=== PATIENT | female | born 1975 | race Caucasian/White ===

== ENCOUNTER 2016-08-27 09:12 | Emergency (ER) | payer OTHER ==
--- NOTE | 2016-08-27 09:18 | EDPHY ---
H & P HPI/ROS: HPI CHIEF COMPLAINT: Rash, tingling of her tongue, mouth, throat, allergic reaction HISTORY OF PRESENT ILLNESS: this patient is a very pleasant 41-year-old female , significant past medical history for migraine headaches, she tells me that she takes a butter brea extract to help control her migraine headaches. Patient tells me that recently she has been taking an noticed that shortly after she takes it she develops tingling of her tongue, posterior pharynx and lips as if she is having allergic reaction. She tells me that she only has this happen after she takes this extract. She has been taking this extracts recently more often to help preventative maintenance of her migraine headaches. She denies focal weakness numbness or tingling anywhere else. She denies focal weakness. Denies numbness tingling anywhere else specifically denies tingling numbness to her face. She describes the tingling to her tongue as diffuse not one-sided tingling throughout her posterior pharynx and down her throat and also her lip circumferentially. Not 1 sided. Denies visual disturbance, denies double vision, denies weakness or fever. Denies recent illness. She does tell me that she has severe allergic reactions to ragweed, and asthma. patient is also requesting that I check her liver enzymes and renal function as she has a family history with liver disease and renal failure. She has no focal symptoms specifically no decreased urine output, no itching or pruritus or jaundice however she is requesting that I check his blood work for her. Past Medical History: Severe allergic reaction regularly, asthma, migraine headaches Past Surgical History: laparoscopic due to endometriosis Social History: denies use of drugs, alcohol, tobacco products Family History: noncontributory ROS REVIEW OF SYSTEMS: A comprehensive 10 point review of systems is otherwise negative aside from elements mentioned in the history of present illness. Exam Constitutional triage nursing summary reviewed, vital signs reviewed, awake/ alert. Eyes normal conjunctivae and sclera, EOMI, PERRLA. HENT normal inspection, atraumatic, moist mucus membranes, no epistaxis, neck supple/ no meningismus, no raccoon eyes. Respiratory clear to auscultation bilaterally, normal breath sounds, no respiratory distress, no wheezing. Cardiovascular rate normal, regular rhythm, no murmur, no edema, distal pulses normal. Gastrointestinal soft, non-tender, no rebound, no guarding, normal bowel sounds, no distension, no pulsatile mass. Genitourinary no CVA tenderness. Musculoskeletal no midline vertebral tenderness, full range of motion, no calf swelling, no tenderness of extremities, no meningismus, good pulses, neurovascularly intact. Skin there is blotchy redness present to the anterior chest worse on the right side of the chest and left, and up the neck consistent with possibly early urticaria Neurologic completely normal neurological exam; no sensory deficit on facial exam, awake, alert and oriented x 3, AAOx3, moves all 4 extremities equally, motor intact, sensory intact, CN II-XII intact, normal cerebellar, normal vision , normal speech. Psychiatric normal mood/affect. Heme/Lymph/Immune no lymphadenopathy. Differential Diagnosis: include allergic reaction, adverse side effect, electrolyte abnormality, Evaluation for renal failure, liver disease. Medical Decision Making: this patient had an IV established will obtain blood work will check her kidney function, liver function, she will be medicated with IV Solu-Medrol, Benadryl, Pepcid for allergic reaction she received IV fluids and will re-evaluate her. Re-evaluation: 1131: Re-evaluation at this time she is resting comfortably she did start complaining of itching of bilateral arms and rash, I have given her another 25 mg IV Benadryl and 0.5 mg IV Ativan will reassess shortly. 1138: Re-evaluation at this time this patient is feeling slightly better less anxious after IV Ativan and IV Benadryl. Her itching has improved. She does tell me she still has burning sensation back or throat I will order her a GI cocktail to see if this improves her symptoms. 1238: Re-evaluation at this time this patient is resting comfortably no acute distress. No further allergic reaction symptoms. In fact her urticaria on her chest redness blotchiness has resolved. She is breathing fine, no respiratory symptoms specifically no wheezing no stridor and her pruritus has resolved. She feels comfortable going home. She does understand if she has further symptoms of allergic reaction return emergency room. Source: Patient - Personal History Tetanus Vaccine Date: WITHIN 10 YRS - Medical/Surgical History Hx Asthma: Yes Hx Chronic Respiratory Disease: No Hx Diabetes: No Hx Cardiac Disease: No Hx Renal Disease: No Hx Cirrhosis: No Hx Alcoholism: No Hx HIV/AIDS: No Hx Splenectomy or Spleen Trauma: No Other PMH: Insulin Resistance. Asthma. PCP Washburn - Social History Smoking Status: Never smoked Constitutional: Initial Vital Signs Temperature (C) 36.9 C 08/27/16 09:28 Heart Rate 97 08/27/16 09:28 Respiratory Rate 16 08/27/16 09:28 Blood Pressure 140/81 H 08/27/16 09:28 O2 Sat (%) 99 08/27/16 09:28 O2 Delivery Mode Room Air Allergies/Adverse Reactions: ibuprofen Allergy (Intermediate, Verified 08/27/16 09:27) Vomiting grass pollen Allergy (Verified 08/27/16 09:32) mold Allergy (Verified 08/27/16 09:32) ragweed pollen Allergy (Verified 08/27/16 09:32) Home Medications: Medication Instructions Recorded Albuterol 01/05/16 Metformin HCl 01/05/16 Famciclovir 08/27/16 Famotidine [Pepcid 20 MG (*)] 20 mg PO BID #6 tab 08/27/16 diphenhydrAMINE [Benadryl 25 MG 25 mg PO BID 3 Days 08/27/16 (*)] predniSONE 60 mg PO DAILY #9 tab 08/27/16 Medical Decision Making - Data Points Laboratory Results: Laboratory Results 08/27/16 09:35 08/27/16 09:35 08/27/16 09:35 WBC 8.11 10^3/uL (3.80-9.50) RBC 4.57 10^6/uL (4.18-5.33) Hgb 14.4 g/dL (12.6-16.3) Hct 41.9 % (38.0-47.0) MCV 91.7 fL (81.5-99.8) MCH 31.5 pg (27.9-34.1) MCHC 34.4 g/dL (32.4-36.7) RDW 12.9 % (11.5-15.2) Plt Count 298 10^3/uL (150-400) MPV 9.2 fL (8.7-11.7) Neut % (Auto) 58.9 % (39.3-74.2) Lymph % (Auto) 30.8 % (15.0-45.0) [place] % (Auto) 7.2 % (4.5-13.0) Eos % (Auto) 2.7 % (0.6-7.6) Baso % (Auto) 0.2 L % (0.3-1.7) Nucleat RBC Rel Count 0.0 % (0.0-0.2) Absolute Neuts (auto) 4.77 10^3/uL (1.70-6.50) Absolute Lymphs (auto) 2.50 10^3/uL (1.00-3.00) Absolute Monos (auto) 0.58 10^3/uL (0.30-0.80) Absolute Eos (auto) 0.22 10^3/uL (0.03-0.40) Absolute Basos (auto) 0.02 10^3/uL (0.02-0.10) Absolute Nucleated RBC 0.00 10^3/uL (0-0.01) Immature Gran % 0.2 % (0.0-1.1) Immature Gran # 0.02 10^3/uL (0.00-0.10) Sodium 142 mEq/L (134-144) Potassium 3.9 mEq/L (3.5-5.2) Chloride 103 mEq/L (97-110) Carbon Dioxide 26 mEq/l (22-31) Anion Gap 13 mEq/L (8-16) BUN 15 mg/dL (7-23) Creatinine 0.7 mg/dL (0.6-1.0) Estimated GFR > 60 Glucose 98 mg/dL (70-100) Calcium 9.6 mg/dL (8.5-10.4) Total Bilirubin 0.9 mg/dL (0.1-1.4) AST 17 IU/L (14-46) ALT 24 IU/L (9-52) Alkaline Phosphatase 52 IU/L (38-126) Total Protein 7.9 g/dL (6.3-8.2) Albumin 4.6 g/dL (3.5-5.0) Medications Given: Discontinued Medications Diphenhydramine HCl (Benadryl Injection) 25 mg IVP EDNOW ONE Stop: 08/27/16 09:34 Last Admin: 08/27/16 09:47 Dose: 25 mg Diphenhydramine HCl (Benadryl Injection) 25 mg IVP EDNOW ONE Stop: 08/27/16 10:51 Last Admin: 08/27/16 10:59 Dose: 25 mg Famotidine (Pepcid) 20 mg IVP EDNOW ONE Stop: 08/27/16 09:34 Last Admin: 08/27/16 09:48 Dose: 20 mg Sodium Chloride (Ns) 500 mls @ 0 mls/hr IV ONCE ONE PRN Reason: Wide Open Stop: 08/27/16 09:34 Last Admin: 08/27/16 09:50 Dose: 500 mls Lorazepam (Ativan Injection) 0.5 mg IVP EDNOW ONE Stop: 08/27/16 10:51 Last Admin: 08/27/16 11:00 Dose: 0.5 mg Methylprednisolone Sodium Succinate (Solu-Medrol) 125 mg IVP EDNOW ONE Stop: 08/27/16 09:34 Last Admin: 08/27/16 09:48 Dose: 125 mg Miscellaneous Medication (Gi Cocktail) 55 ml PO EDNOW ONE Stop: 08/27/16 11:39 Last Admin: 08/27/16 11:44 Dose: 55 ml Departure - Departure Disposition: Home, Routine, Self-Care Clinical Impression: Allergic reaction Qualifiers: Qualifier Code: (T78.40XA) Allergy, unspecified, initial encounter Condition: Good Instructions: Allergies (ED), Food Allergy (ED), Urticaria (ED), Anaphylaxis ( ED) Additional Instructions: 1. Return to the urgent care or emergency room if develops any worsening symptoms includes signs of allergic reaction trouble breathing, trouble swallowing, rash, further numbness or tingling or questions or concerns. Referrals: Misty Washburn DO [Primary Care Provider] - As per Instructions Prescriptions: diphenhydrAMINE [Benadryl 25 MG (*)] 25 mg PO BID 3 Days Famotidine [Pepcid 20 MG (*)] 20 mg PO BID #6 tab predniSONE 60 mg PO DAILY #9 tab
[2016-08-27 09:32] VITALS: TEMP 98.4
[2016-08-27] MEDS ORDERED: methylPREDNISolone SOD SUCC 125 MG/2 ML VIAL IVP ONE (09:33)
[2016-08-27] MEDS ORDERED: NS 500 ML IV ONE (09:33)
[2016-08-27] MEDS ORDERED: FAMOTIDINE 20 MG/2 ML SDV IVP ONE (09:33)
[2016-08-27 09:51] LABS: % IMMATURE GRANULYOCYTES 0.2 % (0.0-1.1); ABSOLUTE IMMATURE GRANULOCYTES 0.02 10^3/uL (0.00-0.10); ADD DIFF? NO; ADD MORPH? NO; ADD SCAN? NO; ATYPICAL LYMPHOCYTE FLAG 10 (0-99); FRAGMENT RBC FLAG 0 (0-99); HEMATOCRIT 41.9 % (38.0-47.0); HEMOGLOBIN 14.4 g/dL (12.6-16.3); LEFT SHIFT FLG 0 (0-99); LIPEMIA HEMOLYSIS FLAG 90 (0-99); MEAN CELL HEMOGLOBIN 31.5 pg (27.9-34.1); MEAN CELL HEMOGLOBIN CONCENTR. 34.4 g/dL (32.4-36.7); MEAN CELL VOLUME 91.7 fL (81.5-99.8); MEAN PLATELET VOLUME 9.2 fL (8.7-11.7); PLATELET CLUMPS FLAG 0 (0-99); PLATELET COUNT 298 10^3/uL (150-400); RED BLOOD CELL COUNT 4.57 10^6/uL (4.18-5.33); RED CELL DISTRIBUTION WIDTH 12.9 % (11.5-15.2)
[2016-08-27 10:18] LABS: ALANINE AMINOTRANSFERASE 24 IU/L (9-52); ALBUMIN 4.6 g/dL (3.5-5.0); ALKALINE PHOSPHATASE 52 IU/L (38-126); ANION GAP 13 mEq/L (8-16); ASPARTATE AMINOTRANSFERASE 17 IU/L (14-46); BILIRUBIN,TOTAL 0.9 mg/dL (0.1-1.4); CALCIUM 9.6 mg/dL (8.5-10.4); CARBON DIOXIDE 26 mEq/l (22-31); CHLORIDE 103 mEq/L (97-110); CREATININE 0.7 mg/dL (0.6-1.0); GLOMERULAR FILTRATION RATE > 60; GLUCOSE 98 mg/dL (70-100); POTASSIUM 3.9 mEq/L (3.5-5.2); SODIUM 142 mEq/L (134-144); TOTAL PROTEIN 7.9 g/dL (6.3-8.2)
[2016-08-27] MEDS ORDERED: LORazepam 2 MG/ML INJ IVP ONE (10:50)
[2016-08-27] MEDS ORDERED: MAALOX/LIDO/HYOSC GI COCKTAIL 55 ML BOTTLE PO ONE (11:38)
[2016-08-27 22:30] VITALS: BP 134/84; PULSE 95; RESP 18; O2SAT 98
== END 2016-08-27 12:40 | disposition home or self-care (01) ==
LOC: CED 09:12
DX: T78.40XA Allergy, unspecified, initial encounter (principal); R21 Rash and other nonspecific skin eruption; G43.909 Migraine, unspecified, not intractable, without status migrainosus
CPT/HCPCS: 80053-PO; 85025-PO; 96361-PO; 96374-PO; 96375-PO; 96376-PO; G0463-PO

== ENCOUNTER 2016-09-04 09:20 | Emergency (ER) | payer OTHER ==
--- NOTE | 2016-09-04 09:33 | UCPHY ---
H & P Patient Type: Established Time Seen by Provider: 09/04/16 09:26 HPI/ROS: CHIEF COMPLAINT: Racing palpitations. HISTORY OF PRESENT ILLNESS: The patient is a 41-year-old female presenting after a week of intermittent racing palpitations. She usually notices the episodes later in the day, typically when she is resting. At other times exertional. This morning she woke up with the palpitations and then developed severe non- radiating central chest pain. Symptoms lasted about 10 minutes and she was completely asymptomatic on presentation today, as well as tenderness later after onset. She did not check her heart rate 80, though it was 115 upon presentation. She denies shortness of breath, diaphoresis, vomiting, abdominal pain. She also describes one recent episode where she developed severe chest pain and shortness of breath after climbing a normal flight of stairs. Family history: Her father had a heart attack at age 49 and of heart disease many years later.. Her 13 aunts and uncles all had heart attacks with multiple cases of abdominal aortic aneurysms, but no thoracic. This factors for PE: None Risk factors for aortic dissection: History of abdominal aortic aneurysm but no thoracic aortic cares. No connective tissue diseases REVIEW OF SYSTEMS: Constitutional: No fever, no chills. Eyes: No diplopia. ENT: No sore throat. Cardiovascular: As above. Respiratory: No cough, no shortness of breath, no wheezing. Gastrointestinal: No nausea vomiting or diarrhea. No abdominal pain. Genitourinary: No hematuria or frequency. Musculoskeletal: No back pain. Skin: No rashes. Neurological: No headache. 10 point ROS otherwise negative Source: Patient Exam Limitations: No limitations - Personal History Tetanus Vaccine Date: WITHIN 10 YRS - Medical/Surgical History Hx Asthma: Yes Hx Chronic Respiratory Disease: No Hx Diabetes: No Hx Cardiac Disease: No Hx Renal Disease: No Hx Cirrhosis: No Hx Alcoholism: No Hx HIV/AIDS: No Hx Splenectomy or Spleen Trauma: No Other PMH: Insulin Resistance. PCOS. Asthma. Migraines. 4 Miscarriages. PCOS. Mitral Valve Prolapse. PCP Wu - Family History Significant Family History: Heart disease - Social History Smoking Status: Never smoked Alcohol Use: None Drug Use: None Additional Social History: Nonsmoker (has secondhand exposure). - Physical Exam Exam: General Appearance: Alert, no distress. Afebrile. Normal phonation. No respiratory distress. Obese. Eyes: Pupils equal and round no pallor or injection. No icterus ENT, Mouth: Mucous membranes moist. Pharynx not erythematous and without exudate. TM Clear. Neck: No adenopathy. Supple. No JVD. Trachea in midline. Respiratory: There are no retractions, lungs are clear to auscultation. Cardiovascular: Regular rate and rhythm, no murmur Abdomen: Soft and nontender, no masses, bowel sounds normal. No palpable aortic mass is. Neurological: Ox3. No motor weakness. Sensation intact. Gait nl. Skin: Warm and dry, no rashes. Musculoskeletal: No joint swelling. Extremities: No edema. Homans sign negative. No cords. Psychiatric: Anxious without psychomotor agitation. Constitutional: Initial Vital Signs Temperature (C) 36.8 C 09/04/16 09:41 Heart Rate 115 H 09/04/16 09:41 Respiratory Rate 16 09/04/16 09:41 Blood Pressure 134/86 H 09/04/16 09:41 O2 Sat (%) 98 09/04/16 09:41 O2 Delivery Mode Room Air Allergies/Adverse Reactions: ibuprofen Allergy (Intermediate, Verified 08/27/16 09:27) Vomiting grass pollen Allergy (Verified 08/27/16 09:32) mold Allergy (Verified 08/27/16 09:32) naproxen sodium [From Aleve] Allergy (Verified 09/04/16 09:40) ragweed pollen Allergy (Verified 08/27/16 09:32) Home Medications: Medication Instructions Recorded Metformin HCl 01/05/16 Aspirin 81mg (*) 09/04/16 Iron 09/04/16 Lorazepam [Ativan] 0.5 mg PO TID PRN #12 tablet 09/04/16 Probiotic 09/04/16 Vitamin D3 09/04/16 Medical Decision Making - Diagnostics EKG Interpretation: 12-LEAD EKG: Please see the full report in [facility]. My interpretation: Sinus arrhythmia. rate 82. Imaging: Study: PA and Lateral Chest X-ray Indication: Chest pain. Results: I viewed the images myself on the PACS system. The radiologist interpretation is: normal chest. ED Course/Re-evaluation: An IV was established and labs ordered. Chest x-ray and EKG ordered. 324mg PO Aspirin administered. Over the course of the subsequent 3-1/2 hours no recurrence of symptomatology. She did say that she was getting somewhat anxious and is able to hand there though upon discharge was suggesting on her own that perhaps she have a trial of Ativan for the next few days to the mm symptoms. Indeed I prescribed 12 tablets of 0.5 mg. Ultimately, heart school was listed as 2-3 due to the insulin intolerance, family history and obesity with 2 or 3 risk factors, thereby she will be considered to be low probability, low risk of 0-3 thereby outpatient testing would be advised. She was anxious to pursue that rather than inpatient. Differential Diagnosis: Differential diagnosis includes but is not limited to: ACS, myocardial ischemia, pulmonary embolus, chest wall pain, pleural inflammation and pulmonary infectious causes. She improved markedly with reassurance and heart rate normalized. Her Perc score was 0. Her Heart score was 2-3. Thus, she is cleared for further outpatient evaluation. Given her constellation of symptoms such as a burning eyes intervening vagina as well as her generalized apprehension and episodic sense of heart racing, or anxiety related distinct possibility considerations patient. She is aware of the need to further pursue the chest pain evaluation in particular given her family history with her PCP - Data Points Laboratory Results: Laboratory Results 09/04/16 10:40 09/04/16 10:40 09/04/16 09/04/16 13:20 10:40 WBC 5.49 10^3/uL (3.80-9.50) RBC 4.19 10^6/uL (4.18-5.33) Hgb 13.0 g/dL (12.6-16.3) Hct 39.0 % (38.0-47.0) MCV 93.1 fL (81.5-99.8) MCH 31.0 pg (27.9-34.1) MCHC 33.3 g/dL (32.4-36.7) RDW 13.1 % (11.5-15.2) Plt Count 297 10^3/uL (150-400) MPV 9.3 fL (8.7-11.7) Neut % (Auto) 50.4 % (39.3-74.2) Lymph % (Auto) 39.0 % (15.0-45.0) [place] % (Auto) 9.1 % (4.5-13.0) Eos % (Auto) 1.1 % (0.6-7.6) Baso % (Auto) 0.2 L % (0.3-1.7) Nucleat RBC Rel Count 0.0 % (0.0-0.2) Absolute Neuts (auto) 2.77 10^3/uL (1.70-6.50) Absolute Lymphs (auto) 2.14 10^3/uL (1.00-3.00) Absolute Monos (auto) 0.50 10^3/uL (0.30-0.80) Absolute Eos (auto) 0.06 10^3/uL (0.03-0.40) Absolute Basos (auto) 0.01 L 10^3/uL (0.02-0.10) Absolute Nucleated RBC 0.00 10^3/uL (0-0.01) Immature Gran % 0.2 % (0.0-1.1) Immature Gran # 0.01 10^3/uL (0.00-0.10) Sodium 142 mEq/L (134-144) Potassium 4.0 mEq/L (3.5-5.2) Chloride 105 mEq/L (97-110) Carbon Dioxide 26 mEq/l (22-31) Anion Gap 11 mEq/L (8-16) BUN 13 mg/dL (7-23) Creatinine 0.7 mg/dL (0.6-1.0) Estimated GFR > 60 Glucose 89 mg/dL (70-100) Calcium 9.7 mg/dL (8.5-10.4) Magnesium 1.8 mg/dL (1.6-2.3) Troponin I < 0.012 ng/mL < 0.012 ng/mL (0-0.034) (0-0.034) Medications Given: Discontinued Medications Aspirin (Aspirin) 324 mg PO EDNOW ONE Stop: 09/04/16 10:16 Last Admin: 09/04/16 10:15 Dose: 324 mg Departure - Departure Disposition: Home, Routine, Self-Care Clinical Impression: Chest pain, Palpitations Condition: Good Instructions: Chest Pain (ED), Palpitations (ED) Additional Instructions: Call the family doctor for further follow-up later this week. Further testing may be necessary. In the meantime use the Ativan to see if her symptoms ameliorate. Referrals: Washburn,Misty, DO [Primary Care Provider] - As per Instructions Prescriptions: Lorazepam [Ativan] 0.5 mg PO TID PRN #12 tablet PRN Reason: Anxiety - PQRS PQRS Measurement: Not applicable Report Scribed for: Salvador Pratt Report Scribed by: Jorgito Conteh Date of Report: 09/04/16 Time of Report: 09:59
[2016-09-04 09:45] VITALS: BP 134/86; PULSE 115; RESP 16; TEMP 98.2; O2SAT 98
--- NOTE | 2016-09-04 09:45 | CPEKG ---
Heart Rate: 82 RR Interval: 732 P-R Interval: 124 QRSD Interval: 70 QT Interval: 356 QTC Interval: 416 P [place]: 36 QRS [place]: 58 T Wave [place]: 61 EKG Severity - NORMAL ECG - EKG Impression: SINUS RHYTHM With sinus arrhythmia has variable rate with P waves. No ischemia Electronically Signed By: Salvador Pratt 04-Sep-2016 15:27:31
[2016-09-04] MEDS ORDERED: ASPIRIN 81 MG CHEWABLE TAB PO ONE (10:15)
--- NOTE | 2016-09-04 10:40 | DX ---
PA and lateral chest History: Heart palpitations with central chest pain. Comparison: None available. Findings: The lungs are clear. There is no pneumothorax or pleural effusion. The heart and pulmona ry vasculature are normal. The bones are normal. Impression: Normal chest.
[2016-09-04 10:44] LABS: % IMMATURE GRANULYOCYTES 0.2 % (0.0-1.1); ABSOLUTE IMMATURE GRANULOCYTES 0.01 10^3/uL (0.00-0.10); ADD DIFF? NO; ADD MORPH? NO; ADD SCAN? NO; ATYPICAL LYMPHOCYTE FLAG 10 (0-99); FRAGMENT RBC FLAG 0 (0-99); LEFT SHIFT FLG 0 (0-99); LIPEMIA HEMOLYSIS FLAG 80 (0-99); MEAN CELL HEMOGLOBIN CONCENTR. 33.3 g/dL (32.4-36.7); MEAN CELL VOLUME 93.1 fL (81.5-99.8); MEAN PLATELET VOLUME 9.3 fL (8.7-11.7); PLATELET CLUMPS FLAG 0 (0-99); PLATELET COUNT 297 10^3/uL (150-400); RED BLOOD CELL COUNT 4.19 10^6/uL (4.18-5.33); RED CELL DISTRIBUTION WIDTH 13.1 % (11.5-15.2)
[2016-09-04 11:00] LABS: ANION GAP 11 mEq/L (8-16); CALCIUM 9.7 mg/dL (8.5-10.4); CARBON DIOXIDE 26 mEq/l (22-31); CHLORIDE 105 mEq/L (97-110); CREATININE 0.7 mg/dL (0.6-1.0); GLOMERULAR FILTRATION RATE > 60; GLUCOSE 89 mg/dL (70-100); MAGNESIUM 1.8 mg/dL (1.6-2.3); SODIUM 142 mEq/L (134-144)
[2016-09-04 11:08] LABS: TROPONIN I < 0.012 ng/mL (0-0.034)
== END 2016-09-04 14:50 | disposition home or self-care (01) ==
LOC: CED 09:20
DX: R07.9 Chest pain, unspecified (principal); R00.2 Palpitations
CPT/HCPCS: 71020-PO; 80048-PO; 83735-PO; 84484-PO; 85025-PO; 93010-PO; 99215-PO; G0463-PO

== ENCOUNTER → 2016-10-20 | Outpatient (CLI) | payer OTHER | LOC: FIMAGING 14:28 | PROVIDERS: ATTEND Family Medicine | DX: R10.9 Unspecified abdominal pain (principal) ==

== ENCOUNTER 2016-11-09 15:19 | Emergency (ER) | payer OTHER ==
[2016-11-09 15:43] VITALS: RESP 16
--- NOTE | 2016-11-09 16:50 | UCPHY ---
H & P Time Seen by Provider: 11/09/16 16:05 Patient Type: Established HPI/ROS: This patient complains of left knee pain primarily after fall downstairs 36 hours ago or so on Tuesday 3:00 a.m.. She explains that she heard her 4-year- old daughter wheezing through her monitor in room with the albuterol medication down stairs tripping over the cat and tumbling down 8 or 10 stairs. She had immediate 7/10 knee pain to the left side that has persisted with feeling of slight laxity/instability and she is uncertain if this is patellar or to the joint itself. She cites both anterior knee pain and popliteal region pain. She is still ambulatory but notes more pain with walking. She did strike her head in the fall but had only a mild headache that is since improved. She was not dazed. She also complains of muscle soreness in the trapezius region bilaterally and in the right lateral neck. This is her 1st visit to a clinician since the injury occurred ROS: Neuro: No confusion. No focal numbness tingling weakness. HEENT: No vision changes. No facial injuries. No intraoral injuries. Pulmonary: No chest wall pain or shortness of breath. GI: No belly pain or vomiting. Cardiovascular: No lightheadedness or heart palpitations. 10 point ROS is otherwise negative Smoking Status: Never smoked Physical Exam: Physical exam: Vital signs are normal General: Patient is in no acute distress. HEENT: Is no external evidence of trauma on exam except for mild right occipital parietal tenderness ness and retains a full range of motion without increase in pain Eyes: Pupils are equal and reactive to light. Extraocular motions are intact. Optic fundi: Clear with no papilledema or hemorrhage. Nose atraumatic. Ears: Clear bilaterally with no hemotympanum. Oropharynx: No dental trauma or malocclusion. No intraoral lacerations. Neck: The patient has no midline neck tenderness. She does have right trapezius tenderness extends in the right lateral neck but retains full range of motion without increase in pain Lungs: Clear to auscultation bilaterally Cardiac: Regular rate and rhythm no murmur gallop or rub. Chest: Nontender. Abdomen: Soft nontender no organomegaly Back: Nontender Extremities: Atraumatic except for left knee Left knee: Patient has patellar anxiety with lateral movements. She has mild posterior knee tenderness. Mild medial knee tenderness. Brittany's is negative for laxity. She has mild laxity with valgus stress but this seems symmetric with the uninjured knee and does not cause pain. Varus stress without pain or laxity. No significant effusion is appreciated Neuro: GCS of 15. Cranial nerves II through XII intact. 3 out of 3 five- minute memory is intact. Cerebellar exam is normal as judged by symmetric rapid hand movements bilaterally. No pronator drift. No sensory or motor deficits are appreciated. Initial differential diagnosis: Mild head injury without concussion, neck strain, left knee patellar subluxation, PCL injury, meniscal injury Constitutional: Initial Vital Signs Temperature (C) 37.1 C 11/09/16 15:40 Heart Rate 80 11/09/16 15:40 Respiratory Rate 16 11/09/16 15:40 Blood Pressure 122/71 H 11/09/16 15:40 O2 Sat (%) 98 11/09/16 15:40 O2 Delivery Mode Room Air Allergies/Adverse Reactions: ibuprofen Allergy (Intermediate, Verified 11/09/16 15:28) Vomiting grass pollen Allergy (Verified 11/09/16 15:28) mold Allergy (Verified 11/09/16 15:28) naproxen sodium [From Aleve] Allergy (Verified 11/09/16 15:28) ragweed pollen Allergy (Verified 11/09/16 15:28) Home Medications: Medication Instructions Recorded Metformin HCl 01/05/16 Aspirin 81mg (*) 09/04/16 Iron 09/04/16 Lorazepam [Ativan] 0.5 mg PO TID PRN #12 tablet 09/04/16 Probiotic 09/04/16 Vitamin D3 09/04/16 Hydrocodone/APAP 5/325 [[place] 1 - 2 tab PO Q4PRN PRN #12 tab 11/09/16 5/325 (*)] Methocarbamol [Robaxin 750 mg (*)] 750 - 1,500 mg PO QID PRN #30 tab 11/09/16 Methocarbamol [Robaxin 750 mg (*)] 750 - 1,500 mg PO QID PRN #30 tab 11/09/16 MDM/Departure - MDM Diagnostics: Knee x-ray: Negative by my interpretation ED Course/Re-evaluation: Patient is placed a neoprene knee brace and counseled regarding patellar subluxation. I also counseled regarding minor head injury. Clinically she does not have any concerning findings to suggest cerebral contusion, intracranial bleed, bony injury or other concerning findings. - Depart Disposition: Home, Routine, Self-Care Condition: Good Instructions: Cervical Strain (ED), Knee Sprain (ED), Head Injury (ED) Additional Instructions: Diagnosis: 1. Minor head injury 2. Neck strain 3. Knee sprain Plan: Ice 20 minutes at a time 3 times a day for the next 3 days Tylenol or Vicodin for pain if needed. No driving, alcohol or come Vicodin Methocarbamol muscle relaxant in addition if needed. Call your orthopedic physician to arrange follow-up appointment for further evaluation for knee Cane or crutches until your knee improved. Wear the brace when your up and about. Go to the emergency department if he have any significant increase in headache, developed confusion or have other concerns. Prescriptions: Hydrocodone/APAP 5/325 [[place] 5/325 (*)] 1 - 2 tab PO Q4PRN PRN #12 tab PRN Reason: Pain Methocarbamol [Robaxin 750 mg (*)] 750 - 1,500 mg PO QID PRN #30 tab PRN Reason: Muscle Spasms Methocarbamol [Robaxin 750 mg (*)] 750 - 1,500 mg PO QID PRN #30 tab PRN Reason: Muscle Spasms Referrals: Misty Washburn DO [Primary Care Provider] - As per Instructions Edwar Mccormack MD [Medical Doctor] - As per Instructions - PQRS PQRS Measurement: NA
[2016-11-09 16:55] VITALS: BP 118/73; PULSE 79; TEMP 98.6; O2SAT 96
== END 2016-11-09 17:02 | disposition home or self-care (01) ==
LOC: CED 15:19
DX: S09.90XA Unspecified injury of head, initial encounter (principal); S16.1XXA Strain of muscle, fascia and tendon at neck level, initial encounter; S83.92XA Sprain of unspecified site of left knee, initial encounter; W10.9XXA Fall (on) (from) unspecified stairs and steps, initial encounter; W22.09XA Striking against other stationary object, initial encounter; Y92.009 Unspecified place in unspecified non-institutional (private) residence as the place of occurrence of the external cause
CPT/HCPCS: 73564-PO; 99214-PO; G0463-PO; L1810

== ENCOUNTER → 2018-08-04 | Outpatient (CLI) | payer OTHER ==
--- NOTE | 2018-08-07 13:37 | CPEEG ---
ELECTROENCEPHALOGRAM DATE OF STUDY: INTERPRETATION: Normal EEG during wakefulness and sleep. There were no potentially epileptogenic ab normalities present during the recording. REPORT: This EEG contains 10 Hz alpha activity to the posterior head regions. There was no abnormal activation at rest, during photic stimulation, or hyperventilation. The patient became drowsy and f ell asleep during the study. There was no abnormal activation during drowsiness, sleep, or during ti mes of arousal. /[id number]/[id number]
== END ==
LOC: FCPNEURO 09:54
PROVIDERS: ATTEND Psychiatry & Neurology Neurology
DX: R44.2 Other hallucinations (principal); R48.1 Agnosia